=== PATIENT | female | born 1940 | race Caucasian/White ===

== ENCOUNTER → 2017-06-20 | Outpatient (CLI) | payer MEDICARE, OTHER ==
[~2017-06-20] MED LIST: ALBU90OI INH; ALLEGRA ALLERG180 MG PO; ALLO100 PO; BREO ELLIPTA 21 EACH INH; CALC.25 PO; CIPR500 PO; D3-20002000 UNIT PO; Effer-K 10 Meq10 MEQ PO; FISH OIL 1,4001 EACH PO; FURO40 PO; Ferrous Sulfat325 M2 PO; NEILMED SINUS; PANT40 PO; Prednisone20 MG PO; SIMV40 PO; Zithromax250 MG PO
== END | disposition home or self-care (01) ==
LOC: LAB EV 11:08
DX: Z00.5 Encounter for examination of potential donor of organ and tissue (principal)
CPT/HCPCS: 36415

== ENCOUNTER 2017-08-07 00:15 | Emergency (ER) | payer MEDICARE, OTHER ==
[~2017-08-07] VITALS: Ht 157.5 cm; Wt 69.4 kg
[2017-08-07] MEDS ORDERED: Effer-K 10 Meq10 MEQ PO (00:47)
[2017-08-07] MEDS ORDERED: CALC.25 PO (00:48)
[2017-08-07] MEDS ORDERED: ALLO100 PO (00:48)
[2017-08-07] MEDS ORDERED: FURO40 PO (00:48)
[2017-08-07] MEDS ORDERED: SIMV40 PO (00:49)
[2017-08-07] MEDS ORDERED: CIPR500 PO (00:50)
[2017-08-07] MEDS ORDERED: ALLEGRA ALLERG180 MG PO (00:50)
[2017-08-07] MEDS ORDERED: D3-20002000 UNIT PO (00:51)
[2017-08-07] MEDS ORDERED: FISH OIL 1,4001 EACH PO (00:51)
[2017-08-07 01:21] LABS: BASOPHILS ABSOLUTE AUTO 0.04 K/mm3 (0.00-0.23); BASOPHILS PERCENT AUTO 1 % (0-2); EOSINOPHILS ABSOLUTE AUTO 0.61 K/mm3 (0.00-0.68); EOSINOPHILS PERCENT AUTO 7 % (0-6); Hematocrit 35.2 % (33.0-51.0); Hemoglobin 11.6 g/dL (11.5-16.0); IMMATURE GRAN ABSOLUTE AUTO 0.02 K/mm3 (0.00-0.10); IMMATURE GRAN PERCENT AUTO 0 % (0-1); LYMPHOCYTES ABSOLUTE AUTO 2.77 K/mm3 (0.84-5.20); LYMPHOCYTES PERCENT AUTO 33 % (21-46); MONOCYTES ABSOLUTE AUTO 1.07 K/mm3 (0.16-1.47); MONOCYTES PERCENT AUTO 13 % (4-13); Mean Corpuscular HGB 31.1 pg (26.0-34.0); Mean Corpuscular Volume 94 fL (80-100); Mean Platelet Volume 9.5 fL (9.1-12.4); NEUTROPHILS ABSOLUTE AUTO 3.85 K/mm3 (1.96-9.15); NEUTROPHILS PERCENT AUTO 46 % (41-73); Platelet Count 201 K/mm3 (150-400); RDW Coefficient Variation 14.5 % (11.7-14.2); RDW Standard Deviation 49.9 fL (35.1-46.3); Red Blood Cell Count 3.73 M/mm3 (3.80-5.20); White Blood Cell Count 8.36 K/mm3 (4.00-11.30)
[2017-08-07 01:40] LABS: Albumin, Blood 3.4 g/dL (3.4-5.0); Albumin/Globulin Ratio 0.9 (0.8-1.8); Bilirubin, Total 0.7 mg/dL (0.1-1.0); Bun/Creatinine Ratio 14.2 (12.0-20.0); Calcium, Blood 8.3 mg/dL (8.5-10.1); Creatinine, Blood 3.53 mg/dL (0.40-1.00); Globulin, Blood 3.9 g/dL (2.2-4.0); Potassium, Blood 3.6 mmol/L (3.5-5.5); Total Protein, Blood 7.3 g/dL (6.4-8.2)
[2017-08-07] MEDS ORDERED: Zithromax250 MG PO (01:59)
[2017-08-07] MEDS ORDERED: Prednisone20 MG PO (01:59)
[2017-08-30] MEDS ORDERED: PANT40 PO (17:19)
[2017-08-30] MEDS ORDERED: Ferrous Sulfat325 M2 PO (17:20)
== END 2017-08-07 02:19 | disposition home or self-care (01) ==
LOC: ER 00:15
PROVIDERS: Emergency Medicine
DX: J45.901 Unspecified asthma with (acute) exacerbation (principal); N18.9 Chronic kidney disease, unspecified; Z91.041 Radiographic dye allergy status; Z88.2 Allergy status to sulfonamides; Z88.5 Allergy status to narcotic agent; Z91.040 Latex allergy status; Z88.8 Allergy status to other drugs, medicaments and biological substances; Z79.899 Other long term (current) drug therapy
CPT/HCPCS: 36415; 71046; 80053; 85025; 93005; 93010; 94640; 96374; 99283; J2930

== ENCOUNTER 2017-08-26 00:25 | Day surgery (SDC) | payer MEDICARE, OTHER ==
[~2017-08-26 00:25] MED LIST changes: -ALBU90OI INH; -BREO ELLIPTA 21 EACH INH; -Ferrous Sulfat325 M2 PO; -NEILMED SINUS; -PANT40 PO
[2017-08-26] MEDS ORDERED: ALBU90OI INH (14:51)
[2017-08-26] MEDS ORDERED: NEILMED SINUS (14:54)
[2017-08-26] MEDS ORDERED: BREO ELLIPTA 21 EACH INH (14:59)
[2017-08-30] MEDS ORDERED: PANT40 PO (17:19)
[2017-08-30] MEDS ORDERED: Ferrous Sulfat325 M2 PO (17:20)
== END 2017-08-26 16:15 | disposition home or self-care (01) ==
LOC: ATC 00:25
DX: N17.9 Acute kidney failure, unspecified (principal); I12.0 Hypertensive chronic kidney disease with stage 5 chronic kidney disease or end stage renal disease; N18.5 Chronic kidney disease, stage 5; N25.81 Secondary hyperparathyroidism of renal origin; D63.1 Anemia in chronic kidney disease
CPT/HCPCS: 96360; 96361; J7030

== ENCOUNTER → 2017-11-01 | Outpatient (CLI) | payer MEDICARE, OTHER ==
[~2017-11-01] MED LIST changes: +ALBU90OI INH; +BREO ELLIPTA 21 EACH INH; +Ferrous Sulfat325 M2 PO; +NEILMED SINUS; +PANT40 PO
== END ==
LOC: PLD 11:44 → LAB SHORT 11:44
DX: D48.5 Neoplasm of uncertain behavior of skin (principal)
CPT/HCPCS: 88305

== ENCOUNTER 2019-01-22 17:35 | Emergency (ER) | payer MEDICARE, OTHER ==
[~2019-01-22] VITALS: Ht 157.5 cm; Wt 64.4 kg
[2019-01-22 17:58] LABS: BASOPHILS ABSOLUTE AUTO 0.06 K/mm3 (0.00-0.23); BASOPHILS PERCENT AUTO 1 % (0-2); EOSINOPHILS ABSOLUTE AUTO 0.17 K/mm3 (0.00-0.68); EOSINOPHILS PERCENT AUTO 2 % (0-6); Hematocrit 39.4 % (33.0-51.0); Hemoglobin 12.1 g/dL (11.5-16.0); IMMATURE GRAN ABSOLUTE AUTO 0.04 K/mm3 (0.00-0.10); IMMATURE GRAN PERCENT AUTO 0 % (0-1); LYMPHOCYTES PERCENT AUTO 21 % (21-46); MONOCYTES ABSOLUTE AUTO 0.71 K/mm3 (0.16-1.47); MONOCYTES PERCENT AUTO 8 % (4-13); Mean Corpuscular HGB 29.4 pg (26.0-34.0); Mean Corpuscular HGB Conc 30.7 g/dL (31.5-36.5); Mean Corpuscular Volume 96 fL (80-100); Mean Platelet Volume 9.4 fL (9.1-12.4); NEUTROPHILS ABSOLUTE AUTO 6.16 K/mm3 (1.96-9.15); NEUTROPHILS PERCENT AUTO 68 % (41-73); Platelet Count 269 K/mm3 (150-400); RDW Coefficient Variation 13.9 % (11.7-14.2); RDW Standard Deviation 48.6 fL (35.1-46.3); Red Blood Cell Count 4.12 M/mm3 (3.80-5.20); White Blood Cell Count 9.04 K/mm3 (4.00-11.30)
[2019-01-22 18:17] LABS: Alanine Aminotransfer (ALT/SGP 86 U/L (12-78); Albumin, Blood 3.6 g/dL (3.4-5.0); Albumin/Globulin Ratio 1.2 (0.8-1.8); Alk Phos 197 U/L (50-136); Anion Gap 5 mmol/L (6-16); Aspartate Aminotrans (AST/SGOT 54 U/L (12-37); Bilirubin, Total 0.5 mg/dL (0.1-1.0); Blood Urea Nitrogen 19 mg/dL (8-24); Bun/Creatinine Ratio 22.4 (12.0-20.0); CO2, Blood 25 mmol/L (21-32); Calcium, Blood 9.3 mg/dL (8.5-10.1); Chloride, Blood 107 mmol/L (98-108); Creatinine, Blood 0.85 mg/dL (0.40-1.00); Globulin, Blood 3.1 g/dL (2.2-4.0); Glomerular Filtration Rate >60 (60-); Glucose, Blood 113 mg/dL (70-99); Potassium, Blood 4.1 mmol/L (3.5-5.5); Sodium, Blood 137 mmol/L (136-145); Total Protein, Blood 6.7 g/dL (6.4-8.2)
[2019-01-22] MEDS ORDERED: PRED20 PO (21:22)
[2019-01-22] MEDS ORDERED: CLARITIN10 MG PO (21:22)
== END 2019-01-22 21:43 | disposition home or self-care (01) ==
LOC: ER 17:35
PROVIDERS: Physician Assistant
DX: L29.9 Pruritus, unspecified (principal); R74.0 Nonspecific elevation of levels of transaminase and lactic acid dehydrogenase [LDH]; R21 Rash and other nonspecific skin eruption; N18.5 Chronic kidney disease, stage 5; J45.909 Unspecified asthma, uncomplicated; E78.5 Hyperlipidemia, unspecified; Z94.0 Kidney transplant status; Z85.038 Personal history of other malignant neoplasm of large intestine; Z79.899 Other long term (current) drug therapy
CPT/HCPCS: 36415; 70450; 80053; 80197; 85025; 96374; 99284-25; J2930

== ENCOUNTER → 2019-02-13 | Outpatient (CLI) | payer MEDICARE, OTHER ==
[~2019-02-13] MED LIST changes: +CLARITIN10 MG PO; +PRED20 PO
== END | disposition home or self-care (01) ==
LOC: LAB EV 12:30
DX: R74.8 Abnormal levels of other serum enzymes (principal); R19.7 Diarrhea, unspecified
CPT/HCPCS: 87493

== ENCOUNTER → 2019-12-25 | Outpatient (CLI) | payer MEDICARE, OTHER | END | disposition home or self-care (01) | LOC: LAB SHORT 11:20 → PLD 11:20 | DX: L57.0 Actinic keratosis (principal); L72.0 Epidermal cyst | CPT/HCPCS: 88305 ==

== ENCOUNTER 2020-10-17 10:45 | Day surgery (SDC) | payer MEDICARE, OTHER ==
[~2020-10-17] VITALS: Ht 157.5 cm; Wt 69.8 kg
[~2020-10-17 10:45] MED LIST changes: +BREO ELLIPTA 21 EAC1 INH; -BREO ELLIPTA 21 EACH INH; +FERSU300 PO; -Ferrous Sulfat325 M2 PO; +OMEGA-3 2100 S1 EACH PO
== END 2020-10-17 13:02 | disposition home or self-care (01) ==
LOC: ORSCSDS 10:45
DX: Z12.11 Encounter for screening for malignant neoplasm of colon (principal); D12.0 Benign neoplasm of cecum; D12.2 Benign neoplasm of ascending colon; D12.4 Benign neoplasm of descending colon; K57.30 Diverticulosis of large intestine without perforation or abscess without bleeding; K64.8 Other hemorrhoids; Z85.038 Personal history of other malignant neoplasm of large intestine; I10 Essential (primary) hypertension; E78.5 Hyperlipidemia, unspecified; Z80.0 Family history of malignant neoplasm of digestive organs; Z94.0 Kidney transplant status; Z79.899 Other long term (current) drug therapy
CPT/HCPCS: 88305; J2704; J7120

== ENCOUNTER → 2021-08-14 | Outpatient (CLI) | payer MEDICARE, OTHER | LOC: LAB SHORT 10:44 | DX: N39.0 Urinary tract infection, site not specified (principal) | CPT/HCPCS: 87077; 87086; 87186 ==

== ENCOUNTER → 2022-02-19 | Outpatient (CLI) | payer MEDICARE, OTHER ==
[2022-02-20 13:42] LABS: C DIFFICILE DNA NEGATIVE (Negative)
== END | disposition home or self-care (01) ==
LOC: LAB 11:10 → LAB SHORT 11:10
PROVIDERS: Physician Assistant
DX: R19.7 Diarrhea, unspecified (principal)
CPT/HCPCS: 87015; 87045; 87046; 87205; 87329; 87493; 87899

== ENCOUNTER 2022-04-12 08:01 | Day surgery (SDC) | payer MEDICARE, OTHER ==
[~2022-04-12] VITALS: Ht 157.5 cm; Wt 69.0 kg
[2022-04-12] MEDS ORDERED: TACR1 (09:17)
[2022-04-12] MEDS ORDERED: MYCO250 (09:18)
[2022-04-12] MEDS ORDERED: GABA100 (09:19)
[2022-04-12] MEDS ORDERED: AMLO10 (09:19)
[2022-04-12] MEDS ORDERED: MONT4 (09:19)
[2022-04-12] MEDS ORDERED: LOSA25 (09:19)
--- NOTE | 2022-04-12 10:32 | NUR ---
04/12/22 1032 DINO GARVIN FISTULA NOTED. THIS AREA WAS PREPPED STERILE AND DRAPED. STERILE TOURNIQUET APPLIED AFTER STERILE DRAPING BELOW FISTULA
== END 2022-04-12 13:00 | disposition home or self-care (01) ==
LOC: ORSCSDS 08:01
PROVIDERS: Orthopaedic Surgery
PROC: 0RQT0ZZ Repair Left Carpometacarpal Joint, Open Approach (ICD-10-PCS; principal; 2022-04-12 10:00)
DX: M18.0 Bilateral primary osteoarthritis of first carpometacarpal joints (principal); Z85.038 Personal history of other malignant neoplasm of large intestine; J45.909 Unspecified asthma, uncomplicated; I12.9 Hypertensive chronic kidney disease with stage 1 through stage 4 chronic kidney disease, or unspecified chronic kidney disease; N18.9 Chronic kidney disease, unspecified; Z94.0 Kidney transplant status; E78.5 Hyperlipidemia, unspecified; Z79.899 Other long term (current) drug therapy
CPT/HCPCS: A9270; J0171; J0690; J1100; J2405; J2704; J2795; J3010; J3370

== ENCOUNTER → 2022-06-11 | Outpatient (CLI) | payer MEDICARE, OTHER ==
[~2022-06-11] MED LIST changes: +AMLO10; +GABA100; +LOSA25; +MONT4; +MYCO250; +TACR1
== END | disposition home or self-care (01) ==
LOC: LAB SHORT 11:06
DX: R30.0 Dysuria (principal)
CPT/HCPCS: 87077; 87086; 87186

== ENCOUNTER → 2022-07-01 | Outpatient (CLI) | payer MEDICARE, OTHER ==
[2022-07-01 09:46] LABS: Source, Urine Clean Catch
[2022-07-01 09:49] LABS: Bilirubin, Urine Neg (Neg); Blood, Urine Neg (Neg); Glucose Qualitative, Urine Neg (Neg); Ketones, Urine Neg (Neg); Leukocyte Esterase, Urine Neg (Neg); Nitrite, Urine Neg (Neg); Protein, Urine Neg (Neg); Urobilinogen, Urine NORM (Normal)
[2022-07-01 09:55] LABS: Appearance, Urine Clear (Clear); Color, Urine Pale Yellow (P-Yellow)
== END | disposition home or self-care (01) ==
LOC: LAB SHORT 08:55 → LAB 08:55
PROVIDERS: Internal Medicine Nephrology
DX: R35.0 Frequency of micturition (principal)
CPT/HCPCS: 81003

== ENCOUNTER 2023-01-13 10:12 | Emergency (ER) | payer MEDICARE, OTHER ==
[~2023-01-13] VITALS: Ht 162.6 cm; Wt 81.7 kg
[2023-01-13 10:35] LABS: BASOPHILS ABSOLUTE AUTO 0.07 K/mm3 (0.00-0.23); BASOPHILS PERCENT AUTO 1 % (0-2); EOSINOPHILS ABSOLUTE AUTO 0.22 K/mm3 (0.00-0.68); EOSINOPHILS PERCENT AUTO 2 % (0-6); Hematocrit 43.2 % (33.0-51.0); Hemoglobin 14.4 g/dL (11.5-16.0); IMMATURE GRAN ABSOLUTE AUTO 0.03 K/mm3 (0.00-0.10); IMMATURE GRAN PERCENT AUTO 0 % (0-1); LYMPHOCYTES ABSOLUTE AUTO 1.81 K/mm3 (0.84-5.20); LYMPHOCYTES PERCENT AUTO 19 % (21-46); MONOCYTES ABSOLUTE AUTO 0.64 K/mm3 (0.16-1.47); MONOCYTES PERCENT AUTO 7 % (4-13); Mean Corpuscular HGB 30.8 pg (26.0-34.0); Mean Corpuscular HGB Conc 33.3 g/dL (31.5-36.5); Mean Corpuscular Volume 93 fL (80-100); Mean Platelet Volume 9.2 fL (9.1-12.4); NEUTROPHILS ABSOLUTE AUTO 6.61 K/mm3 (1.96-9.15); NEUTROPHILS PERCENT AUTO 71 % (41-73); Platelet Count 231 K/mm3 (150-400); RDW Coefficient Variation 13.9 % (11.7-14.2); RDW Standard Deviation 47.4 fL (35.1-46.3); Red Blood Cell Count 4.67 M/mm3 (3.80-5.20); White Blood Cell Count 9.38 K/mm3 (4.00-11.30)
[2023-01-13 11:01] LABS: Albumin, Blood 3.6 g/dL (3.4-5.0); Albumin/Globulin Ratio 1.1 (0.8-1.8); Bilirubin, Total 0.5 mg/dL (0.1-1.0); Bun/Creatinine Ratio 16.4 (12.0-20.0); Calcium, Blood 9.3 mg/dL (8.5-10.1); Creatinine, Blood 0.86 mg/dL (0.40-1.00); Globulin, Blood 3.2 g/dL (2.2-4.0); Potassium, Blood 4.7 mmol/L (3.5-5.5); Total Protein, Blood 6.8 g/dL (6.4-8.2)
[2023-01-13 12:30] VITALS: BP 149/67
== END 2023-01-13 12:51 | disposition home or self-care (01) ==
LOC: ER 10:12
PROVIDERS: Emergency Medicine
DX: S00.83XA Contusion of other part of head, initial encounter (principal); J45.909 Unspecified asthma, uncomplicated; E78.5 Hyperlipidemia, unspecified; I12.9 Hypertensive chronic kidney disease with stage 1 through stage 4 chronic kidney disease, or unspecified chronic kidney disease; N18.4 Chronic kidney disease, stage 4 (severe); Z85.038 Personal history of other malignant neoplasm of large intestine; Z91.041 Radiographic dye allergy status; Z88.0 Allergy status to penicillin; Z88.2 Allergy status to sulfonamides; Z91.048 Other nonmedicinal substance allergy status; Z91.040 Latex allergy status; Z88.8 Allergy status to other drugs, medicaments and biological substances; Z79.52 Long term (current) use of systemic steroids; Z79.899 Other long term (current) drug therapy; W18.30XA Fall on same level, unspecified, initial encounter
CPT/HCPCS: 70450; 72125; 80053; 85025; 99284-25; J7030

== ENCOUNTER → 2023-02-23 | Outpatient (CLI) | payer MEDICARE, OTHER | LOC: LAB SHORT 12:04 → LAB 12:04 | DX: D48.5 Neoplasm of uncertain behavior of skin (principal) | CPT/HCPCS: 88305 ==

== ENCOUNTER → 2023-03-19 | Outpatient (CLI) | payer MEDICARE, OTHER | LOC: LAB SHORT 09:37 → LAB 09:37 | DX: R30.0 Dysuria (principal) | CPT/HCPCS: 87086 ==

== ENCOUNTER → 2024-02-09 | Outpatient (CLI) | payer MEDICARE, OTHER ==
[2024-02-09 13:16] LABS: Source, Urine Voided
[2024-02-09 13:36] LABS: Appearance, Urine Clear (Clear); Bilirubin, Urine Neg (Neg); Blood, Urine Neg (Neg); Glucose Qualitative, Urine Neg (Neg); Ketones, Urine Neg (Neg); Leukocyte Esterase, Urine Neg (Neg); Nitrite, Urine Neg (Neg); Protein, Urine Neg (Neg); Urobilinogen, Urine NORM (Normal)
[2024-02-09 14:05] LABS: Color, Urine Pale Yellow (P-Yellow)
== END ==
LOC: LAB 09:00 → LAB SHORT 09:00
PROVIDERS: Hospitalist
DX: R35.0 Frequency of micturition (principal)
CPT/HCPCS: 81003

== ENCOUNTER → 2024-06-11 | Outpatient (CLI) | payer MEDICARE, OTHER | LOC: LAB SHORT 10:23 → LAB 10:23 | DX: N39.0 Urinary tract infection, site not specified (principal); R31.9 Hematuria, unspecified | CPT/HCPCS: 87077; 87086; 87186 ==

== ENCOUNTER 2024-08-20 14:10 | Emergency (ER) | payer MEDICARE, OTHER ==
[~2024-08-20] VITALS: Ht 157.5 cm; Wt 67.6 kg
[2024-08-20 14:25] VITALS: BP 169/85
[2024-08-20 14:53] LABS: BASOPHILS ABSOLUTE AUTO 0.07 K/mm3 (0.00-0.23); BASOPHILS PERCENT AUTO 1 % (0-2); EOSINOPHILS ABSOLUTE AUTO 0.05 K/mm3 (0.00-0.68); EOSINOPHILS PERCENT AUTO 1 % (0-6); Hemoglobin 13.8 g/dL (11.5-16.0); IMMATURE GRAN ABSOLUTE AUTO 0.04 K/mm3 (0.00-0.10); IMMATURE GRAN PERCENT AUTO 0 % (0-1); LYMPHOCYTES ABSOLUTE AUTO 1.52 K/mm3 (0.84-5.20); LYMPHOCYTES PERCENT AUTO 16 % (21-46); MONOCYTES ABSOLUTE AUTO 0.45 K/mm3 (0.16-1.47); MONOCYTES PERCENT AUTO 5 % (4-13); Mean Corpuscular HGB 31.1 pg (26.0-34.0); Mean Corpuscular HGB Conc 32.9 g/dL (31.5-36.5); Mean Corpuscular Volume 95 fL (80-100); Mean Platelet Volume 9.7 fL (9.1-12.4); NEUTROPHILS ABSOLUTE AUTO 7.41 K/mm3 (1.96-9.15); NEUTROPHILS PERCENT AUTO 78 % (41-73); Platelet Count 248 K/mm3 (150-400); RDW Coefficient Variation 13.8 % (11.7-14.2); RDW Standard Deviation 48.4 fL (35.1-46.3); Red Blood Cell Count 4.44 M/mm3 (3.80-5.20); White Blood Cell Count 9.54 K/mm3 (4.00-11.30)
[2024-08-20 15:18] LABS: Albumin, Blood 3.7 g/dL (3.4-5.0); Albumin/Globulin Ratio 1.1 (0.8-1.8); Bilirubin, Total 0.6 mg/dL (0.1-1.0); Bun/Creatinine Ratio 25.9 (12.0-20.0); Calcium, Blood 9.7 mg/dL (8.5-10.1); Creatinine, Blood 0.85 mg/dL (0.40-1.00); Globulin, Blood 3.5 g/dL (2.2-4.0); Potassium, Blood 4.4 mmol/L (3.5-5.5); Total Protein, Blood 7.2 g/dL (6.4-8.2)
== END 2024-08-20 17:34 | disposition home or self-care (01) ==
LOC: ER 14:10
PROVIDERS: Student in an Organized Health Care Education/Training Program
DX: R51.9 Headache, unspecified (principal); H57.11 Ocular pain, right eye; J45.909 Unspecified asthma, uncomplicated; N18.9 Chronic kidney disease, unspecified; Z94.0 Kidney transplant status; Z91.041 Radiographic dye allergy status; Z88.2 Allergy status to sulfonamides; Z88.8 Allergy status to other drugs, medicaments and biological substances; Z91.040 Latex allergy status; Z91.048 Other nonmedicinal substance allergy status; Z79.52 Long term (current) use of systemic steroids; Z79.899 Other long term (current) drug therapy
CPT/HCPCS: 70450; 80053; 85025; 85651; 86140; 99283-25

== ENCOUNTER → 2024-12-03 | Outpatient (CLI) | payer MEDICARE, OTHER | END | disposition home or self-care (01) | LOC: LAB SHORT 09:44 → LAB 09:44 | DX: S51.802D Unspecified open wound of left forearm, subsequent encounter (principal) | CPT/HCPCS: 87070; 87205 ==

== ENCOUNTER → 2025-03-01 | Outpatient (CLI) | payer MEDICARE, OTHER | LOC: LAB 10:01 → LAB SHORT 10:01 | DX: N39.0 Urinary tract infection, site not specified (principal) | CPT/HCPCS: 87077; 87086; 87186 ==

== ENCOUNTER 2025-04-09 08:37 | Emergency (ER) | payer MEDICARE, OTHER ==
[~2025-04-09] VITALS: Ht 157.5 cm; Wt 63.5 kg
[2025-04-09 08:44] VITALS: BP 152/73
[2025-04-09] MEDS ORDERED: XARELTO15 MG PO (11:22)
== END 2025-04-09 11:45 | disposition home or self-care (01) ==
LOC: ER 08:37
DX: T82.868A Thrombosis due to vascular prosthetic devices, implants and grafts, initial encounter (principal); Y83.2 Surgical operation with anastomosis, bypass or graft as the cause of abnormal reaction of the patient, or of later complication, without mention of misadventure at the time of the procedure; I12.0 Hypertensive chronic kidney disease with stage 5 chronic kidney disease or end stage renal disease; N18.5 Chronic kidney disease, stage 5; J45.909 Unspecified asthma, uncomplicated; E78.5 Hyperlipidemia, unspecified; Z91.041 Radiographic dye allergy status; Z91.040 Latex allergy status; Z88.8 Allergy status to other drugs, medicaments and biological substances; Z91.048 Other nonmedicinal substance allergy status; Z79.899 Other long term (current) drug therapy
CPT/HCPCS: 76882; 93971; 99283-25